=== PATIENT | female | born 1990 | race African-American/Black ===

== ENCOUNTER 2016-05-24 03:26 | Emergency (ER) | payer SELFPAY ==
--- NOTE | ~2016-05-24 | CR127 ---
[facility] A Service of [facility] & [facility] RADIOLOGY TEXT RESULTS PATIENT: ERIC OROZCO LOCATION: [facility] : [birth year] UNIT #: [id number] AGE: [address]: Horacio Warren DO SEX: F ORDER DR: [id number] [facility] [address] [place], [place] [address] [id number] E MR#: [id number] #: [id number] NAME: ERIC OROZCO : 1990 SEX: F STUDY DATE/TIME: 05/24/2016 3:38 UNIT: [facility] ROOM: STUDY DESCRIPTION: CR Foot Complete Min 3 View Rt Attending Physician: Horacio Warren D.O. Ordering Physician: Horacio Warren D.O. Primary Care Physician: Primary Care Physician No MEDICAL IMAGING REPORT This report is preliminary unless electronic signature is present EXAM Right foot series 05/24/2016 HISTORY 25-year-old female in the ED with foot pain after injury. Struck foot on table tonight. TECHNIQUE Three-view right foot series. FINDINGS There is an acute nondisplaced intraarticular fracture across the medial base of the second proximal phalanx. Mild soft tissue swelling. The remainder of the examination is negative. IMPRESSION Second proximal phalanx fracture. Dictated by... Greg Galindo M.D. THIS IS AN ELECTRONICALLY VERIFIED REPORT Greg Galindo M.D. at 05/28/2016 5:01 PM RAZ/abelardo TD: 05/24/2016 08:32 JOB #: [id number] MEDICAL IMAGING REPORT Page 1 of 1 COPY
== END 2016-05-24 05:30 | disposition home or self-care (01) ==
LOC: CED 03:26
DX: S92.514A Nondisplaced fracture of proximal phalanx of right lesser toe(s), initial encounter for closed fracture (principal); W22.8XXA Striking against or struck by other objects, initial encounter; Y92.009 Unspecified place in unspecified non-institutional (private) residence as the place of occurrence of the external cause
CPT/HCPCS: 29540; 73630; 99283; J1885